=== PATIENT | female | born 1955 | race Two or more races ===

== ENCOUNTER → 2025-04-01 | Outpatient (CLI) | payer MEDICARE, SELFPAY ==
--- NOTE | 2025-04-01 08:00 | XR_ITS ---
Examination: CT chest, without intravenous contrast. Sagittal and coronal 2-D reconstructions. Exam date and time: April 01, 2025, 0744 hours COMPARISON: April 24, 2024 INDICATIONS: CT chest examination April 24, 2024 3 mm pulmonary nodule right upper lobe 4 mm pulmonary nodule lingular segment left upper lobe. Coughing 5 years. CTDI:vol (mGy) 12.5. DLP: (mGycm) 409. Technique: Multiple 3.0 mm axial sections of the chest to been obtained. Bone and lung density settings are obtained. Sagittal and coronal 2-D reconstructions have been obtained. Low dose protocols were performed. One or more of the following dose reduction techniques were used; automated exposure control, adjustment of the mA and/or KV according to patient size, use of iterative reconstruction technique. Findings: No thoracic aortic aneurysmal dilatation Pulmonary artery segments are not enlarged. No paratracheal, tracheobronchial or bronchopulmonary adenopathy. Stable 3 mm pulmonary nodule right upper lobe 5 mm pulmonary nodule lingular segment compared to 4 mm on the prior study New 3 mm pulmonary nodule right middle lobe COPD with areas of air space destruction. No focal liver or splenic lesion IMPRESSION: Enlarging pulmonary nodule lingular segment. New 3 mm pulmonary nodule right middle lobe. Recommend continued 6 month follow-up CT chest without contrast
== END | disposition home or self-care (01) ==
LOC: CCTX 07:36
PROVIDERS: PCP Registered Nurse Community Health; Referring Provider Registered Nurse Community Health; Visit Provider Registered Nurse Community Health
DX: R91.1 Solitary pulmonary nodule (principal)
CPT/HCPCS: 71250

== ENCOUNTER → 2025-04-05 | Outpatient (CLI) | payer MEDICARE, SELFPAY ==
--- NOTE | 2025-04-05 14:19 | XR_ITS ---
Examination: Lumbar spine, 5 views Technique: Lumbar spine AP, lateral, coned lateral lower lumbar spine, bilateral obliques 5 views Exam date and time: April 05, 2025 1433 hours INDICATIONS: Low back pain 6 months. FINDINGS: Prominent osteopenia Lumbar levoscoliosis 8 degrees Advanced diffuse facet arthropathy No acute lumbar fracture Advanced degenerative disc disease L5-S1 No spondylolisthesis IMPRESSION: Advanced degenerative disc disease L5-S1 with significant spinal stenosis
== END | disposition home or self-care (01) ==
PROVIDERS: PCP Registered Nurse Community Health; Referring Provider Registered Nurse Community Health; Visit Provider Registered Nurse Community Health
DX: M51.370 Other intervertebral disc degeneration, lumbosacral region with discogenic back pain only (principal); M48.07 Spinal stenosis, lumbosacral region
CPT/HCPCS: 72110